=== PATIENT | male | born 1990 | race African-American/Black ===

== ENCOUNTER 2023-09-11 17:11 | Emergency (ER) | payer OTHER ==
[2023-09-11 17:22] VITALS: PULSE 70; RESP 20
--- NOTE | 2023-09-11 17:32 | ED ---
Skin/Abscess/FB HPI - General Chief complaint: Skin/Abscess/Foreign Body Stated complaint: pain in right leg Time Seen by Provider: 09/11/23 17:20 Source: patient, RN notes reviewed Mode of arrival: ambulatory Limitations: no limitations - History of Present Illness Initial comments: 33-year-old male presents to the emergency department with chief complaint of an abscess is on his right medial thigh in his intertriginous region. States that he has noted this swelling over the past few weeks, but states that over the last 3 days it has been increasingly more tender and has become erythematous. denies obvious injury to the overlying skin denies fevers, nausea, vomiting, diarrhea. - Related Data Previous Rx's Medication Instructions Recorded clindamycin HCL 300 mg PO QID #40 cap 09/11/23 Allergies Allergy/AdvReac Type Severity Reaction Status Date / Time Sulfa (Sulfonamide Allergy Rash/Hives Verified 09/11/23 18:04 Antibiotics) Review of Systems ROS Statement: Those systems with pertinent positive or pertinent negative responses have been documented in the HPI. ROS Other: All systems not noted in ROS Statement are negative. Past Medical History Past Medical History: No Reported History History of Any Multi-Drug Resistant Organisms: None Reported Past Surgical History: No Surgical Hx Reported Past Psychological History: No Psychological Hx Reported Smoking Status: Current every day smoker Past Alcohol Use History: Rare Past Drug Use History: Marijuana General Exam Limitations: no limitations General appearance: alert, in no apparent distress Head exam: Present: atraumatic, normocephalic, normal inspection Eye exam: Present: normal appearance, PERRL, EOMI. Absent: scleral icterus, conjunctival injection, periorbital swelling ENT exam: Present: normal exam, mucous membranes moist Neck exam: Present: normal inspection. Absent: tenderness, meningismus, lymphadenopathy Respiratory exam: Present: normal lung sounds bilaterally. Absent: respiratory distress, wheezes, rales, rhonchi, stridor Cardiovascular Exam: Present: regular rate, normal rhythm, normal heart sounds. Absent: systolic murmur, diastolic murmur, rubs, gallop, clicks GI/Abdominal exam: Present: soft, normal bowel sounds. Absent: distended, tenderness, guarding, rebound, rigid Right Upper Leg exam: Present: tenderness (2 cm area of fluctuance, overlying erythema) Back exam: Present: normal inspection Neurological exam: Present: alert, oriented X3, CN II-XII intact Psychiatric exam: Present: normal affect, normal mood Skin exam: Present: warm, dry, intact, normal color. Absent: rash Course Vital Signs 09/11/23 17:12 Temperature 98.0 F Pulse Rate 70 Respiratory 20 Rate Blood Pressure 174/113 O2 Sat by Pulse 100 Oximetry Procedures - Incision & Drainage Consent Obtained: verbal consent Indication: fluctuant abscess Site: lower extremity (right medial intertreginous) Anesthetic Used: lidocaine 1% I&D Cleaning Method: Alcohol Wipe, Iodine Sterile Field Used?: Yes Scalpel Used: #11 Ultrasound used: No Needle Aspiration Performed?: Yes (aspiration unsuccessful) I&D Drainage Obtained: Pus, Blood Insertion of drain: No Culture Obtained?: No Complications: bleeding Patient Tolerated Procedure: well, no complications (minimal blood loss) Medical Decision Making - Medical Decision Making Was pt. sent in by a medical professional or institution ( [place], COUNTY AUDITOR, urgent care, hospital, or detention...) When possible be specific @ -No Did you speak to anyone other than the patient for history (EMS, parent, family, police, friend...)? What history was obtained from this source @ -No Did you review nursing and triage notes (agree or disagree)? Why? @ -I reviewed and agree with nursing and triage notes Were old charts reviewed (outside hosp., previous admission, EMS record, old EKG, old radiological studies, urgent care reports/EKG's, detention records)? Report findings @ -No old charts were reviewed Differential Diagnosis (chest pain, altered mental status, abdominal pain women, abdominal pain men, vaginal bleeding, weakness, fever, dyspnea, syncope, headache, dizziness, GI bleed, back pain, seizure, CVA, palpatations, mental health, musculoskeletal)? @ -differential: Abscess, ingrown hair, folliculitis, carbuncle, focal EKG interpreted by me (3pts min.). @ -None X-rays interpreted by me (1pt min.). @ -None done CT interpreted by me (1pt min.). @ -None done U/S interpreted by me (1pt. min.). @ -None done What testing was considered but not performed or refused? (CT, X-rays, U/S, labs)? Why? @ -None What meds were considered but not given or refused? Why? @ -None Did you discuss the management of the patient with other professionals (professionals i.e. , [place], COUNTY AUDITOR, lab, RT, psych nurse, social media developer, superintendent plant, teacher, account officer, upper caser)? Give summary @ -No Was smoking cessation discussed for >3mins.? @ -No Was critical care preformed (if so, how long)? @ -No Were there social determinants of health that impacted care today? How? (Homelessness, low income, unemployed, alcoholism, drug addiction, transportation, low edu. Level, literacy, decrease access to med. care, care home, rehab)? @ -No Was there de-escalation of care discussed even if they declined (Discuss DNR or withdrawal of care, Hospice)? DNR status @ -No What co-morbidities impacted this encounter? (DM, HTN, Smoking, COPD, CAD, Cancer, CVA, ARF, Chemo, Hep., AIDS, mental health diagnosis, sleep apnea, morbid obesity)? @ -None Was patient admitted / discharged? Hospital course, mention meds given and route, prescriptions, significant lab abnormalities, going to OR and other pertinent info. @ -Charge. 33-year-old male presents a chief complaint of abscess. On physical exam patient was found to have roughly 2 and half centimeter area of fluctuance in his right medial thigh in the intertriginous region. Area was numbed with 1% lidocaine, prepped with Betadine, and successful incision and drainage was performed. Tolerated procedure well. Recommend that patient use warm compresses at home about 3 times a day to help further expel area of infection. Prescribed clindamycin. To follow-up with his primary care provider within the next week for further intervention. Undiagnosed new problem with uncertain prognosis? @ -No Drug Therapy requiring intensive monitoring for toxicity (Heparin, Nitro, I nsulin, Cardizem)? @ -No Were any procedures done? @ -Aspiration of abscess completed without successful attempt. Further incision and drainage performed and appropriate sterile field with 11 mm blade. Successful avulsion of purulence and blood. Patient tolerated procedure well. Diagnosis/symptom? @ -abscess Acute, or Chronic, or Acute on Chronic? @ -Acute Uncomplicated (without systemic symptoms) or Complicated (systemic symptoms)? @ -Uncomplicated Side effects of treatment? @ -No Exacerbation, Progression, or Severe Exacerbation? @ -No Poses a threat to life or bodily function? How? (Chest pain, [place], [place], pneumonia, PE, COPD, DKA, ARF, appy, cholecystitis, CVA, Diverticulitis, Homicidal, Suicidal, threat to staff... and all critical care pts) @ -No Disposition Clinical Impression: Abscess Narrative: Please return to the Emergency Department if symptoms worsen or any other concerns. Take full course of antibiotics. Continue symptomatic relief at home rotating Tylenol Motrin. Warm compresses at home to help continue expulsion of abscess. Monitor at home for signs of systemic symptoms such as fever, nausea, vomiting. Disposition: HOME SELF-CARE Condition: Good Instructions (If sedation given, give patient instructions): Abscess Incision and Drainage (ED) Prescriptions: clindamycin HCL 300 mg PO QID #40 cap Is patient prescribed a controlled substance at d/c from ED?: No Referrals: None,Stated [Primary Care Provider] - 1-2 days Time of Disposition: 18:03
[2023-09-11] MEDS: KETOROLAC 15 MG/ML 1 ML VIAL IM STA (17:37)
[2023-09-11] MEDS: LIDOCAINE 1% INJ 10MG/ML (20 ML MDV) SQ ONE (17:38)
[2023-09-11 18:26] VITALS: BP 166/113; TEMP 98.7
== END 2023-09-11 18:17 | disposition home or self-care (01) ==
LOC: EC 17:11
DX: L02.415 Cutaneous abscess of right lower limb (principal); F12.90 Cannabis use, unspecified, uncomplicated; F17.200 Nicotine dependence, unspecified, uncomplicated; Z88.2 Allergy status to sulfonamides
CPT/HCPCS: 99283; 96372; 10060; J2001; J1885